=== PATIENT | male | born 1960 | race Caucasian/White ===

== ENCOUNTER → 2017-06-30 | Outpatient (CLI) | payer BC ==
[~2017-06-30] MED LIST: DIPH-437 PO; GLIP-197 PO; KETO10TA PO; LISI-461 PO; METF1TAB53 PO; NAPR1TAB9 PO; OXYC-57 PO; SIMV20TA2 PO
[2017-06-30 11:39] LABS: BASO % 1.5 %; BASO ABS # 0.09 K/uL (0-0.2); COMPLETE YES; EOS % 4.7 %; HEMATOCRIT 44.8 % (42-52); IG% 0.3 %; LYMPH % 36.5 %; LYMPH ABS # 2.26 K/uL (1.2-3.4); MEAN CELL VOLUME 83.9 fL (80-100); MEAN CORPUSCULAR HEMOGLOBIN 28.3 pg (25-34); MEAN CORPUSCULAR HGB CONC 33.7 g/dl (32-36); MONO % 6.5 %; NEUT % 50.5 %; PLATELET COUNT 239 K/uL (130-400); RED BLOOD COUNT 5.34 M/uL (4.7-6.1)
[2017-06-30 12:04] LABS: BLOOD UREA NITROGEN 15 mg/dl (7-18); BUN/CREATININE RATIO 15.3 (10-20); CALCIUM 9.1 mg/dl (8.5-10.1); CARBON DIOXIDE 26 mmol/L (21-32); CHLORIDE 104 mmol/L (98-107); GLUCOSE 129 mg/dl (70-99); POTASSIUM 4.1 mmol/L (3.5-5.1); SODIUM 139 mmol/L (136-145)
== END | disposition home or self-care (01) ==
LOC: C.CPL 10:08
PROVIDERS: ATTEND Orthopaedic Surgery
DX: Z01.812 Encounter for preprocedural laboratory examination (principal); M25.511 Pain in right shoulder

== ENCOUNTER → 2017-07-20 | Day surgery (SDC) | payer BC ==
[2017-07-19 08:26] VITALS: Ht 175.3 cm; Wt 86.4 kg
[~2017-07-20] VITALS: Ht 175.3 cm; Wt 86.4 kg
[~2017-07-20] MED LIST changes: +ATROPINE SULFATE 0.1 MG/ML 5ML SYR IV PRN; +BUPIVACAINE/EPINEPHRINE 0.25% 1:200,000 30 ML VIAL ONE; +CEFAZOLIN 2000 MG/60 ML D5W IV SCH; +DEXAMETHASONE SOD INJ 4 MG/ML VIAL ONE; +EpHEDrine SULFATE INJ 50 MG/ML AMP IV PRN; +EpINEphrine INJ 1MG/ML AMP 1 MG/ML AMP ONE; +FENTANYL CITRATE INJ 50 MCG/1 ML 2 ML VIAL ONE; +LACTATED RINGER'S 1000ML 1,000 ML IV SCH; +LIDOCAINE HCL 2% 2 ML VIAL (20MG/ML) ONE; +MIDAZOLAM HCL 1 MG/ML 2ML VIAL ONE; -NAPR1TAB9 PO; +ONDANSETRON INJ 2 MG/ML 2 ML VIAL IV PRN; +ONDANSETRON INJ 2 MG/ML 2 ML VIAL ONE; +OXYCODONE/ACETAMINOPHEN 5-325 TAB PO PRN; +PROPOFOL IV EMULSION 10 MG/ML 20 ML VIAL IV ONE; +ROPIVACAINE 0.5% 5 MG/ML 30 ML VIAL ONE; +SODIUM CHLORIDE 0.9% 1000ML 1,000 ML IV SCH
--- NOTE | 2017-07-20 06:48 | History & Physical Bridge - [place] ---
H&P Re-Evaluation Bridge Note: I have examined the patient, reviewed the History & Physical and in the interval since the performance of the History & Physical I have noted the following changes of clinical significance: No changes noted
[2017-07-20] MEDS: LACTATED RINGER'S 1000ML 1,000 ML IV SCH ×2 (12:05→14:33)
--- NOTE | 2017-07-20 14:26 | Discharge Instructions-SurgCtr ---
Discharge Instructions Date of Service Jul 20, 2017. Visit Reason for Visit: Right Shoulder Adhesive Capsulitis, Pain Discharge Discharge Diagnosis / Problem: SAME ABOVE Discharge Goals Goal(s): Decrease discomfort, Improve function Medications Stopped Medications Name(s): Metformin last dose Monday Restart Stopped Medication(s): MAY RESTART 07/20/2017 Activity Recommendations Activity Limitations: as noted below Lifting Limitations: until after follow-up appointment Exercise/Sports Limitations: until after follow-up appointment Shower/Bathe: tomorrow Anesthesia . Post Anesthesia Instructions: If you have had General Anesthesia or IV Sedation: * Do not drive today. * Resume driving when surgeon permits. * Do not make important decisions or sign legal documents today. * Call surgeon for: 1. Temperature elevations greater than 101 degrees F. 2. Uncontrollable pain. 3. Excessive bleeding. 4. Persistent nausea and vomiting. 5. Medication intolerance (nausea, vomiting or rash). * For nausea and vomiting use only clear liquids such as: tea, soda, bouillon until nausea subsides, then gradually increase diet as tolerated. * If you have any concerns or questions, call your surgeon's office. If physician is unavailable and it is an emergency, call 911 or go to the nearest emergency room. . Instructions / Follow-Up Instructions / Follow-Up MEDICATIONS: * Resume previous medications unless instructed otherwise by your surgeon. * Always take pain medication on a full stomach or with food to avoid upset stomach. * Do not drink alcohol or drive while taking narcotics. * Ibuprofen or Tylenol may be taken if narcotic not needed. SPECIAL CARE INSTRUCTIONS: __ None _X_ Keep extremity elevated and iced x 48 hours; apply ice 20-30 minutes 8-10 times/day. May remove at night. _X_ Sling (MAY REMOVE AFTER 48 HOURS ONLY TO SHOWER AND FOR THERAPY) _X_24 hrs/day __ Remove at night __ Shoulder Immobilizer __ 24 hrs/day __ Remove at night _X_ Dressing __ Maintain until seen in office, may shower with plastic over site _X_ Remove dressings in 24-48 hours and then may shower _X_ Cover incisions with band-aids after showering __ Do not remove steri-strips Call physician if chills or temperature rises above 102 degrees or pain unrelieved by prescribed pain medications at . . Diet Recommendations Home Diet: no limitations Fluid Restriction: None Procedures Procedures Performed: Right Shoulder Arthroscopic Capsular Release With Small Rotator Cuff Repair, Acromioplasty, Biceps Tenodesis Pending Studies Studies pending at discharge: no Work Instructions Return To Work: after follow-up Lifting Limitations: NO LIFTING WITH RIGHT ARM Medical Emergencies . Who to Call and When: Medical Emergencies: If at any time you feel your situation is an emergency, please call 911 immediately. . Non-Emergent Contact Non-Emergency issues call your: Primary Care Provider Call Non-Emergent contact if: you have a fever, temperature is above 101.5 . . "Provider Documentation" section prepared by Braden Lucas. .
[2017-07-20] MEDS: FENTANYL CITRATE INJ 50 MCG/1 ML 2 ML VIAL IV PRN ×3 (14:51→15:17)
--- NOTE | 2017-07-20 14:53 | [facility] Post Operative Brief Note ---
Immediate Operative Summary Operative Date Jul 20, 2017. Pre-Operative Diagnosis Right shoulder small rotator cuff tear Post-Operative Diagnosis Same as preop Procedure(s) Performed Right Shoulder Arthroscopic Capsular Release With Small Rotator Cuff Repair, Acromioplasty, Biceps Tenodesis Surgeon Dr. Ricks International Controller Surgeon(s) Braden Lucas PA-C Estimated Blood Loss 5 mL Findings as above Specimens None Complication(s) None Disposition Recovery Room / PACU
[2017-07-20 15:55] VITALS: TEMP 36.4
--- NOTE | 2017-07-20 16:07 | Anesthesiology Progress Note ---
Anesthesia Post Op Note Date & Time Jul 20, 2017 at 16:07 Vital Signs Pain Intensity: 2 Vital Signs Past 12 Hours Date Time Temp Pulse Resp B/P (MAP) Pulse Ox O2 Delivery O2 Flow Rate FiO2 07/20/17 15:55 36.4 97 16 151/91 (111) 95 Room Air 07/20/17 15:26 151/99 07/20/17 15:23 36.2 96 13 151/99 96 Room Air 07/20/17 15:23 96 13 97 07/20/17 15:23 97 13 07/20/17 15:21 152/96 07/20/17 15:18 94 15 97 07/20/17 15:18 97 15 07/20/17 15:16 151/104 07/20/17 15:13 98 9 07/20/17 15:13 99 9 98 07/20/17 15:11 149/94 07/20/17 15:08 99 18 100 07/20/17 15:08 100 18 07/20/17 15:06 143/92 07/20/17 15:03 92 13 07/20/17 15:03 92 13 100 07/20/17 15:01 152/92 07/20/17 14:58 89 10 100 07/20/17 14:58 87 10 07/20/17 14:56 153/92 07/20/17 14:53 94 7 07/20/17 14:53 94 7 100 07/20/17 14:51 144/85 07/20/17 14:48 94 10 100 07/20/17 14:48 95 10 07/20/17 14:46 152/105 07/20/17 14:43 98 16 07/20/17 14:43 100 16 100 07/20/17 14:41 154/88 07/20/17 14:38 98 12 07/20/17 14:38 98 12 100 07/20/17 14:36 150/104 07/20/17 14:33 98 20 07/20/17 14:33 98 20 100 07/20/17 14:31 148/91 07/20/17 14:28 21 07/20/17 14:28 102 21 07/20/17 14:26 156/87 07/20/17 14:25 36.3 104 20 156/87 100 Mask 6 07/20/17 13:12 0 07/20/17 13:10 133/93 07/20/17 13:07 83 07/20/17 13:07 85 13 99 07/20/17 13:06 138/95 07/20/17 13:03 82 07/20/17 13:03 81 12 98 07/20/17 13:00 141/112 07/20/17 12:58 87 07/20/17 12:58 87 7 96 07/20/17 12:56 122/95 07/20/17 12:53 92 07/20/17 12:53 91 16 99 07/20/17 12:52 144/92 07/20/17 12:48 85 07/20/17 12:48 85 0 98 07/20/17 12:43 88 0 97 07/20/17 12:43 89 07/20/17 12:38 86 07/20/17 12:38 85 0 98 07/20/17 12:33 87 0 98 07/20/17 12:33 88 07/20/17 12:28 88 07/20/17 12:28 87 98 07/20/17 11:33 36.8 95 16 131/88 (102) 97 Room Air Notes Mental Status: alert / awake / arousable, participated in evaluation Pt Amnestic to Procedure: Yes Nausea / Vomiting: adequately controlled Pain: adequately controlled Airway Patency, RR, SpO2: stable & adequate BP & HR: stable & adequate Hydration State: stable & adequate Anesthetic Complications: no major complications apparent
[2017-07-20 16:24] VITALS: BP 151/91; PULSE 97; O2SAT 96
--- NOTE | 2017-07-20 21:42 | OPERATIVE REPORT ---
DATE OF OPERATION: 07/20/2017 PREOPERATIVE DIAGNOSES: External impingement with a complete rotator cuff tear and adhesive capsulitis of the right shoulder. POSTOPERATIVE DIAGNOSES: Same. PROCEDURE: Right shoulder diagnostic arthroscopy with extensive debridement, lysis of adhesions, distal clavicle resection, rotator cuff repair, acromioplasty, arthroscopic biceps tenodesis and manipulation under anesthesia. SURGEON: Santos Ricks DO FORMATION FRACTURING OPERATOR: Catrachito Lucas PA-C, whose assistance was necessary for positioning the arm and helping with instrumentation. ANESTHESIA: General with a right interscalene nerve block. COMPLICATIONS: None. CONDITION: Stable to PACU. INDICATIONS: Angus is a pleasant 56-year-old male who works at [employer]. 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 He noticed a lot of the anterior subacromial pain and tightness of his shoulder. MRI and clinical examination were diagnostic for far anterior rotator cuff tear and adhesive capsulitis. After failing conservative treatment, he elected to undergo arthroscopy. DESCRIPTION OF PROCEDURE: On 07/20/2017, he arrived at [facility] for the above procedures. He was seen in the preoperative holding area and the operative extremity was identified and signed. He was given appropriate antibiotic and a right interscalene nerve block. He was taken back to the operating room, laid on the table in supine position and put under general anesthesia. He was then put into the beachchair position. The right shoulder was prepped and draped in sterile fashion. Time-out was done and the patient and operative extremity was properly identified. On preoperative physical examination, he only had about 10 degrees of external rotation and 40 degrees of abduction. Gentle manipulation was done under anesthesia to facilitate insertion of the arthroscope. The scope was then placed in the posterior portal. Diagnostic arthroscopy showed no cartilage damage to the humeral head or the glenoid. There was some fraying of the anterior labrum. There was significant redness and the adhesions within the rotator interval as well as the middle and anterior inferior glenohumeral ligaments. An anterior portal was made. A shaver was used to start an extensive debridement inside the joint. Time was spent opening up the rotator interval as well as debriding some of the ligamentous structures. An ablator was then used to do a lysis of adhesions to include removing all adhesions from the undersurface of the coracoid as well as the middle and anterior inferior glenohumeral ligaments. A shaver was then used to debride back all the ligamentous fragments back to stable margins. Arthroscopic instruments were removed from the shoulder and manipulation was done under anesthesia and I was able to get full range of motion of the shoulder. The scope was then placed back into the glenohumeral joint and the biceps tendon was arthroscopically tenotomized. The scope was then put into the subacromial space. A lateral portal was made. A shaver was used to do a complete subacromial and subdeltoid bursectomy. Time was spent doing a complete debridement in the spaces. An ablator was used to tease the coracoacromial ligament off the undersurface of the acromion and a 5-0 viktor was used to complete an acromioplasty of a Bigliani type 2 acromion. A shaver was used to remove any excess debris. Attention was turned to the distal clavicle. There were large inferior osteophytes off the end of the distal clavicle. A 5-0 viktor was used to co-plane the undersurface of the clavicle and open up the supraspinatus outlet. Attention was then turned to the rotator cuff. An additional anterolateral portal was made and Lyla cannulas were placed in each of the lateral portals. There was a small far anterior rotator cuff tear. The greater tuberosity was prepared with a ring curette and a microfracture. The long head of the biceps tendon was first tagged with an Arthrex FiberLink suture. An Arthrex 4.75-mm BioComposite SwiveLock suture anchor was placed along the medial row. The long head of the biceps tendon was incorporated in fixation to complete a biceps tenodesis. The anchor was loaded with 2 FiberTapes and these were passed through the tendon separately. The 2 FiberTapes were brought down to a single lateral row SwiveLock suture anchor. This gave a nice knotless modified SpeedBridge repair. Multiple pictures were taken. The scope was placed back into the glenohumeral joint and the articular margin of the rotator cuff had been restored. Pictures were taken. Arthroscopic instruments were removed from the shoulder. Portal sites were closed with 3-0 nylon. He was then placed in a soft dressing and a regular arm sling. He was then extubated and transferred to the litter and taken to the postoperative care unit in stable condition. He tolerated the procedure well. I attest to the content of the Intraoperative Record and any orders documented therein. Any exceptions are noted below. RONAN
== END ==
LOC: X.SURG 11:23
PROVIDERS: ATTEND Orthopaedic Surgery
DX: M75.121 Complete rotator cuff tear or rupture of right shoulder, not specified as traumatic (principal); M75.01 Adhesive capsulitis of right shoulder; I10 Essential (primary) hypertension